=== PATIENT | female | born 1990 | race Native Hawaiian/Other Pacific Islander ===

== ENCOUNTER 2016-05-14 08:00 | Emergency (ER) | payer OTHER ==
[~2016-05-14] VITALS: Ht 160 cm; Wt 77.1 kg
== END 2016-05-14 08:58 | disposition home or self-care (01) ==
LOC: ED 08:00
DX: L02.01 Cutaneous abscess of face (principal)
CPT/HCPCS: 99282

== ENCOUNTER 2016-07-29 09:34 | Emergency (ER) | payer OTHER ==
[~2016-07-29] VITALS: Ht 160 cm; Wt 75.8 kg
[2016-07-29 10:39] LABS: PLATELET COUNT 322 K/uL (152-353)
== END 2016-07-29 11:35 | disposition home or self-care (01) ==
LOC: ED 09:34
DX: J32.0 Chronic maxillary sinusitis (principal)
CPT/HCPCS: 36415; 85027; 87081; 87804; 87880; 99283

== ENCOUNTER 2016-09-12 17:56 | Emergency (ER) | payer OTHER ==
[~2016-09-12] VITALS: Ht 160 cm; Wt 74.8 kg
== END 2016-09-12 19:49 | disposition home or self-care (01) ==
LOC: ED 17:56
PROC: 2W3FX1Z Immobilization of Left Hand using Splint (ICD-10-PCS; principal; 2016-09-12)
DX: S67.02XA Crushing injury of left thumb, initial encounter (principal); X58.XXXA Exposure to other specified factors, initial encounter; Y92.512 Supermarket, store or market as the place of occurrence of the external cause
CPT/HCPCS: 99283

== ENCOUNTER 2016-12-11 22:42 | Emergency (ER) | payer OTHER | END 2016-12-11 23:30 | disposition home or self-care (01) | LOC: ED 22:42 | DX: M79.644 Pain in right finger(s) (principal) ==

== ENCOUNTER 2016-12-17 06:50 | Emergency (ER) | payer OTHER ==
[~2016-12-17] VITALS: Ht 160 cm; Wt 71.7 kg
== END 2016-12-17 07:58 | disposition home or self-care (01) ==
LOC: ED 06:50
PROC: 2W3CX1Z Immobilization of Right Lower Arm using Splint (ICD-10-PCS; principal; 2016-12-17)
DX: S62.614A Displaced fracture of proximal phalanx of right ring finger, initial encounter for closed fracture (principal); X58.XXXA Exposure to other specified factors, initial encounter; Y92.89 Other specified places as the place of occurrence of the external cause
CPT/HCPCS: 99282

== ENCOUNTER 2016-12-22 07:33 | Emergency (ER) | payer OTHER ==
[~2016-12-22] VITALS: Ht 160 cm; Wt 766.6 kg
== END 2016-12-22 08:10 | disposition home or self-care (01) ==
LOC: ED 07:33
DX: S50.862A Insect bite (nonvenomous) of left forearm, initial encounter (principal); S50.861A Insect bite (nonvenomous) of right forearm, initial encounter; W57.XXXA Bitten or stung by nonvenomous insect and other nonvenomous arthropods, initial encounter
CPT/HCPCS: 99281

== ENCOUNTER 2017-03-02 12:31 | Emergency (ER) | payer OTHER ==
[~2017-03-02] VITALS: Ht 160 cm; Wt 68.0 kg
[2017-03-02 12:36] VITALS: BP 144/77; TEMP 98.4
== END 2017-03-02 14:15 | disposition home or self-care (01) ==
LOC: ED 12:31
DX: R05 Cough (principal); R06.02 Shortness of breath
CPT/HCPCS: 99281

== ENCOUNTER 2017-05-20 20:51 | Emergency (ER) | payer OTHER ==
[~2017-05-20] VITALS: Ht 160 cm; Wt 64.0 kg
[2017-05-20 21:58] LABS: PLATELET COUNT 317 K/uL (152-353)
[2017-05-20 22:07] LABS: POTASSIUM 3.8 mmol/L (3.6-5.2)
[2017-05-20 22:35] VITALS: BP 125/75; TEMP 98.5
== END 2017-05-20 22:42 | disposition home or self-care (01) ==
LOC: ED 20:51
DX: O03.1 Delayed or excessive hemorrhage following incomplete spontaneous abortion (principal)
CPT/HCPCS: 80053; 84702; 85027; 99283

== ENCOUNTER 2017-05-31 16:03 | Emergency (ER) | payer OTHER ==
[~2017-05-31] VITALS: Ht 160 cm; Wt 64.0 kg
[2017-05-31 16:55] LABS: PLATELET COUNT 344 K/uL (152-353)
[2017-05-31 17:01] LABS: POTASSIUM 3.7 mmol/L (3.6-5.2)
[2017-05-31 17:55] VITALS: BP 122/65; TEMP 98.9
== END 2017-05-31 18:06 | disposition home or self-care (01) ==
LOC: ED 16:03
DX: R05 Cough (principal); M79.1 Myalgia
CPT/HCPCS: 80053; 85027; 93005; 94664; 99283

== ENCOUNTER 2019-02-19 22:21 | Emergency (ER) | payer OTHER ==
[~2019-02-19] VITALS: Ht 160 cm; Wt 66.2 kg
[2019-02-20 00:25] VITALS: BP 114/89; TEMP 98.3
== END 2019-02-20 00:25 | disposition home or self-care (01) ==
LOC: ED 22:21
DX: M54.89 Other dorsalgia (principal); M79.18 Myalgia, other site
CPT/HCPCS: 81000; 81025; 96372; 99283; J1885